=== PATIENT | male | born 1965 | race Asian ===

== ENCOUNTER → 2018-04-17 09:58 | Outpatient (CLI) | payer OTHER, SELFPAY ==
[2018-04-17 10:24] LABS: Influenza A and B by PCR Rapid Negative (Negative)
== END ==
PROVIDERS: Visit Provider Physician Assistant
DX: R68.89 Other general symptoms and signs (principal)
CPT/HCPCS: 87400

== ENCOUNTER → 2024-10-18 09:39 | Outpatient (CLI) | payer OTHER, SELFPAY ==
[2024-10-18 13:27] LABS: Influenza A - CEPHEID Flu A NEGATIVE (NEGATIVE); Influenza B - CEPHEID Flu B NEGATIVE (NEGATIVE)
[2024-10-18 13:28] LABS: COVID-19 CEPHEID 4-PLEX PCR Negative (Negative)
== END ==
PROVIDERS: Visit Provider Physician Assistant
DX: R05.1 Acute cough (principal)
CPT/HCPCS: 87637